=== PATIENT | male | born 1940 | race Caucasian/White ===

== ENCOUNTER 2023-07-02 11:04 | Outpatient (AMB) | payer MEDICARE, SELFPAY ==
--- NOTE | 2023-07-02 11:26 | MHC.OFFVIS ---
Intake Intake Visit Reasons: Testosterone Deficiency/Peyronie's Disease Intake Note: NEW Patient presents today to established treatment for Testosterone Deficiency/Peyronie's Disease: Meds- None Allergies to Antibiotic- No Known Allergies Blood Thinner- Aspirin Mat Machine Tender Required: No Accompanied by: Self / Same As Patient Allergies No Known Allergies Allergy (Verified 07/02/23 11:41) HPI HPI Comments History of Present Illness Details Ant is an 83-year-old male who is here for evaluation due to low testosterone. He states he has been feeling fatigued. He discussed symptoms with his PCP who checked several laboratory electrolytes including testosterone. Total testosterone 06/26/2023 was 285. I have discussed repeat testosterone including FSH and LH and PSA. Follow-up in 3 months [facility] Medical History (Updated 08/24/23 @ 19:32 by Guero Fernandez MD) Fungal infection Malaise and fatigue Testosterone deficiency Hyperlipidemia Surgical History (Updated 07/02/23 @ 11:41 by HARLEY Mcallister) No pertinent past surgical history Family History Father No problems noted. Mother No problems noted. Social History Alcohol intake: current Alcohol intake frequency: does not drink Patient Tobacco Use Status: Never used Tobacco Review of Systems Const All systems reviewed & are unremarkable except as noted in HPI and below Reports no additional complaints Eyes Reports no additional complaints ENT Reports no additional complaints Card Denies dyspnea Resp Denies dyspnea GI Reports no additional complaints Musc Reports no additional complaints Skin/Breast Denies rash and Denies unusual bruising Neuro Reports no additional complaints Psych Reports no additional complaints Endo Reports no additional complaints Wenceslao/Lymph Reports no additional complaints Aller/Immun Reports no additional complaints Physical Exam Const General: healthy appearing, no acute distress and well developed Orientation/consciousness: patient oriented x3 HEENT Head: Yes normocephalic and Yes atraumatic Eyes Conjunctivae: conjunctivae normal Neck Neck: Yes normal visual inspection Chest Chest palpation & inspection: normal inspection of the chest Resp Effort & Inspection: normal respiratory effort Cardio Rate: regular rate GI Inspection: Yes normal to inspection Skin General skin exam: no rashes or lesions noted Neuro General: patient oriented x3 Extrem General: No pedal edema Psych Appearance: grossly normal Affect: normal affect Results AMB Urinalysis, Automated UA Leukoctes 0 Keshawn/uL Last Edit by Melani Marin [facility] on 07/02/23 11:39 UA Nitrite Negative Last Edit by Melani Marin [facility] on 07/02/23 11:39 UA Urobilinogen 0.2 mg/dL Last Edit by Melani Marin [facility] on 07/02/23 11:39 UA Protein 0 mg/dL Last Edit by Melani Marin [facility] on 07/02/23 11:39 UA pH 6.0 Last Edit by Melani Marin [facility] on 07/02/23 11:39 UA Blood 0 Supa/uL Last Edit by Melani Marin [facility] on 07/02/23 11:39 UA Specific [place] 1.015 Last Edit by Melani Marin, [facility] on 07/02/23 11:39 UA Ketone Negative Last Edit by Melani Marin [facility] on 07/02/23 11:39 UA Bilirubin 0 mg/dL Last Edit by Melani Marin [facility] on 07/02/23 11:39 UA Glucose 0 mg/dL Last Edit by Melani Marin [facility] on 07/02/23 11:39 Results Reviewed Results Reviewed: Laboratory Last Values Urine pH (Auto) 6.0 07/02/23 11:38 Specific [place] (Auto) 1.015 07/02/23 11:38 Urine Protein (Auto) 0 mg/dL 07/02/23 11:38 Glucose (UA)(Auto) 0 mg/dL 07/02/23 11:38 Urine Ketones (Auto) Negative 07/02/23 11:38 Urine Blood (Auto) 0 Supa/uL 07/02/23 11:38 Urine Nitrite (Auto) Negative 07/02/23 11:38 Urine Bilirubin (Auto) 0 mg/dL 07/02/23 11:38 Urine Urobilinogen (Auto) 0.2 mg/dL 07/02/23 11:38 Leukocyte Esterase (Auto) 0 Keshawn/uL 07/02/23 11:38 Assessment & Plan Assessment & Plan (1) Testosterone deficiency in male: Code(s): E29.1 - Testicular hypofunction (2) BPH (benign prostatic hyperplasia): Code(s): N40.0 - Benign prostatic hyperplasia without lower urinary tract symptoms Plan PSA F/T - Testosterone, LH, FSH Cialis 5 mg daily FU 3 months Orders: Orders AMB Urinalysis Automated 07/02/23 R33.9 - Retention of urine, unspecified AMB Urinalysis Automated 07/02/23 R33.9 - Retention of urine, unspecified Coding Level of Care Code New Pt Level 3 (28722) Diagnoses Testosterone deficiency in male E29.1 BPH (benign prostatic hyperplasia) N40.0
== END 2023-07-02 13:22 | disposition home or self-care (01) ==
PROVIDERS: PCP Family Medicine; Visit Provider Urology
DX: E29.1 Testicular hypofunction (principal); N40.0 Benign prostatic hyperplasia without lower urinary tract symptoms
CPT/HCPCS: 99203

== ENCOUNTER → 2023-07-02 11:04 | Outpatient (BNVA) | payer MEDICARE, SELFPAY | PROVIDERS: PCP Family Medicine; Visit Provider Urology | DX: E29.1 Testicular hypofunction (principal); N40.0 Benign prostatic hyperplasia without lower urinary tract symptoms | CPT/HCPCS: 81003; 99202 ==

== ENCOUNTER 2023-10-02 10:58 | Outpatient (AMB) | payer MEDICARE, SELFPAY ==
--- NOTE | 2023-10-02 10:59 | A.OFFVIS_ITS ---
Intake Visit Reasons: PSA/Testo f/u Intake Note: Presents today to established treatment for Testosterone Deficiency/Peyronie's Disease: Meds- None Allergies to Antibiotic- No Known Allergies Blood Thinner- Aspirin Attendant Child Activity Required: No Accompanied by: Self / Same As Patient Allergies No Known Allergies Allergy (Verified 07/02/23 11:41) HPI Comments Details: 10/02/2023-Ant is an 83-year-old male who is being evaluated for complaints of history of Peyronie's disease and erectile dysfunction. The patient states he was treated by another urologist for the Peyronie's disease. He states he was treated with testosterone gel in the past and had an adverse reaction. I have reviewed the lab work LH and FSH levels are elevated, testosterone level is low. The patient had excellent questions that were answered.30 minutes spent in review of records pertaining to this visit and documentation of this visit. Review of chart: 07/02/23--Ant is an 83-year-old male who is here for evaluation due to low testosterone. He states he has been feeling fatigued. He discussed symptoms with his PCP who checked several laboratory electrolytes including testosterone. Total testosterone 06/26/2023 was 285. I have discussed repeat testosterone including FSH and LH and PSA. Follow-up in 3 months 10/02/2023 plan discussed testosterone replacement testosterone gel, the patient states he had an adverse reaction to the gel that was prescribed in the past. Will hold on testosterone replacement at this time. The patient has not tolerated oral medications for treatment of ED such as Viagra or Cialis, discussed alternative treatment with TriMix therapy for ED [facility] Medical History Fungal infection Malaise and fatigue Testosterone deficiency Hyperlipidemia Surgical History No pertinent past surgical history Family History Father No problems noted. Mother No problems noted. Social History Alcohol intake: current Alcohol intake frequency: does not drink Patient Tobacco Use Status: Never used Tobacco Review of Systems Const All systems reviewed & are unremarkable except as noted in HPI and below Reports no additional complaints Eyes Reports no additional complaints ENT Reports no additional complaints Card Reports no additional complaints Resp Reports no additional complaints GI Reports no additional complaints Reports as per HPI Musc Reports no additional complaints Skin/Breast Reports system reviewed and no additional complaints, except as documented Neuro Reports no additional complaints Psych Reports no additional complaints Endo Reports no additional complaints Wenceslao/Lymph Reports no additional complaints Aller/Immun Reports no additional complaints Telehealth Telehealth Telehealth Platform: Hiri Location of provider rendering services: practice address Location of patient: address on file Patient Identification confirmed using: Name, : Yes Telehealth method: voice only Patient verbally consented to treatment: Yes Patient verbally consented to billing insurance company: Yes Patient informed of any privacy concerns related to visit: Yes Minutes spent on Phone/Video with Pt.: 20 Assessment & Plan Assessment & Plan (1) Testosterone deficiency in male: Code(s): E29.1 - Testicular hypofunction Category: Medical (2) BPH (benign prostatic hyperplasia): Code(s): N40.0 - Benign prostatic hyperplasia without lower urinary tract symptoms Category: Medical (3) Erectile dysfunction: Code(s): N52.9 - Male erectile dysfunction, unspecified Category: Medical Plan Hold on testosterone replacement due to adverse reaction to testosterone gel in the past. Will order TriMix injection medication. Patient is aware that insurance may not cover and likely [id number] cost. Patient Instructions: The patient had an opportunity to ask questions regarding treatment plan. The patient expressed understanding and agreement with the above treatment plan. The patient is aware they should contact our office by phone for worsening of their current condition or the appearance of new symptoms. Compliance is encouraged with any medications and followup testing that is ordered. It is a privilege to be allowed the opportunity to participate in the urologic care of your patient. If you have any questions or concerns regarding treatment for the above conditions please do not hesitate to contact me. The office telephone contact is [phone]. This note is constructed in part using voice recognition software. While every effort has been made to ensure accuracy phone screener errors may have been included. Yours sincerely, Guero Fernandez MD Coding Level of Care Code Tele Est Pt Level 4 (62261) Diagnoses Testosterone deficiency in male E29.1 BPH (benign prostatic hyperplasia) N40.0 Erectile dysfunction N52.9
== END 2023-10-02 15:29 | disposition home or self-care (01) ==
LOC: HO.HUSH 10:58
PROVIDERS: PCP Family Medicine; Visit Provider Urology
DX: E29.1 Testicular hypofunction (principal); N40.0 Benign prostatic hyperplasia without lower urinary tract symptoms; N52.9 Male erectile dysfunction, unspecified
CPT/HCPCS: 99442

== ENCOUNTER → 2023-10-02 10:58 | Outpatient (BNVA) | payer MEDICARE, SELFPAY | PROVIDERS: PCP Family Medicine; Visit Provider Urology ==